=== PATIENT | female | born 1995 | race Caucasian/White ===

== ENCOUNTER 2017-04-09 12:44 | Emergency (ER) | payer OTHER ==
[~2017-04-09 12:44] MED LIST: METF500T PO; PREVTAB PO
[2017-04-09 12:45] VITALS: BP 140/89; PULSE 93; RESP 16; TEMP 98.5; O2SAT 97
[2017-04-09 13:56] LABS: BLOOD, URINE NEG (NEG); GLUCOSE,URINE NEG (NEG); KETONE, URINE NEG (NEG); NITRITE,URINE NEG (NEG); PH, URINE 7.5 (5.0-8.5); SQUAMOUS EPITHELIAL CELL URINE 2 /hpf (0-5); URINE COLOR LIGHT-YELLOW (YELLW/STRAW)
[2017-04-09 13:57] LABS: AUTOMATED NEUTROPHIL # 6.8 TH/MM3 (1.8-7.7); BASOPHIL % 0.4 % (0.0-2.0); COMMENT (UR) CULT NOT INDICATED; CULTURE IF INDICATED CULT NOT INDICATED; EOSINOPHIL # 0.1 TH/MM3 (0-0.4); EOSINOPHIL % 0.8 % (0.0-4.0); HEMATOCRIT 40.2 % (35.0-46.0); HEMO FLAGS DIFF FINAL; LYMPHOCYTE # 2.2 TH/MM3 (1.0-4.8); MEAN CELL VOLUME 85.3 FL (80.0-100.0); MEAN CORPUSCULAR HEMOGLOBIN 28.7 PG (27.0-34.0); MEAN CORPUSCULAR HGB CONC 33.7 % (32.0-36.0); MONO % 5.2 % (0.0-8.0); NEUT % 70.6 % (16.0-70.0); PLATELET COUNT 334 TH/MM3 (150-450); RED BLOOD COUNT 4.71 MIL/MM3 (4.00-5.30); RED CELL DISTRIBUTION WIDTH 13.5 % (11.6-17.2); WHITE BLOOD COUNT 9.6 TH/MM3 (4.0-11.0)
[2017-04-09 14:02] LABS: APTT (PATIENT) 26.8 SEC (24.3-30.1); PROTHROMBIN TIME - PATIENT 10.6 SEC (9.8-11.6)
--- NOTE | 2017-04-09 14:07 | PD ---
HPI Chief Complaint: Related Problem Time Seen by Provider: 13:52 Travel History International Travel<30 days: No Contact w/Intl Traveler<30days: No Traveled to known affect area: No History of Present Illness HPI The patient is a 21-year-old female who presents to the emergency department for positive test. The patient is a whose last menstrual cycle was February 08, 2017. The patient was on oral contraceptive pills until she had a test one week ago which was positive. The patient saw her primary physician in the office today who performed a test which was positive. The patient was sent for an outpatient ultrasound at [facility], apparently had an ultrasound which did not reveal an IUP or an ectopic and was referred to the emergency department for further evaluation. She does complain of mild lower abdominal cramping and mild low back pain. She does note 2 intermittent episodes of light vaginal spotting. She states her blood type is Rh+, she knows her blood type secondary to donating blood. She denies any significant abdominal pain, nausea, vomiting , dysuria, or vaginal discharge. Symptoms are mild, possibly exacerbated by underlying , there are no current alleviating factors. PFSH Past Medical History Medical History: Denies Significant Hx Diminished Hearing: No Reproductive: Yes Immunizations Current: Yes Tetanus Vaccination: < 5 Years ?: LMP: 02/08/17 : 1 Para: 0 Past Surgical History Oral Surgery: Yes Other Surgery: Yes (WISDOM TEETH EXTRACTION) Social History Alcohol Use: No Tobacco Use: No Substance Use: No Allergies-Medications (Allergen,Severity, Reaction): Coded Allergies: amoxicillin (Unverified Allergy, Unknown, 04/09/17) clavulanic acid (Unverified Allergy, Unknown, 04/09/17) Reported Meds & Prescriptions Reported Meds & Active Scripts Active Metformin (Metformin HCl) 500 Mg Tab 500 Mg PO BIDPC With meals Review of Systems Except as stated in HPI: all other systems reviewed are Neg General / Constitutional: No: Fever Cardiovascular: No: Chest Pain or Discomfort Respiratory: No: Shortness of Breath Gastrointestinal: No: Nausea, Vomiting, Abdominal Pain Genitourinary: Positive: Pelvic Pain (cramping), Vaginal Bleeding (spotting), No: Dysuria, Discharge Physical Exam Narrative GENERAL: Awake, alert, pleasant 21-year-old female who appears her stated age and is in no acute respiratory distress. SKIN: Focused skin assessment warm/dry. HEAD: Atraumatic. Normocephalic. EYES: Pupils equal and round. No scleral icterus. No injection or drainage. ENT: No nasal bleeding or discharge. Mucous membranes pink and moist. NECK: Trachea midline. No JVD. CARDIOVASCULAR: Regular rate and rhythm. No murmur appreciated. RESPIRATORY: No accessory muscle use. Clear to auscultation. Breath sounds equal bilaterally. GASTROINTESTINAL: Abdomen soft, non-tender, nondistended. No rebound tenderness , guarding, or rigidity. Back: No CVA tenderness. Pelvic: The exam was performed in the presence of a female nurse. External examination reveals no rashes or lesions. Speculum examination reveals no blood in the vaginal vault. Cervix is closed, slightly discolored bluish, positive Jonathan sign, positive closed with small brown mucous plug noticeable. MUSCULOSKELETAL: No obvious deformities. No clubbing. No cyanosis. No edema. NEUROLOGICAL: Awake and alert. No obvious cranial nerve deficits. Motor grossly within normal limits. Normal speech. PSYCHIATRIC: Appropriate mood and affect; insight and judgment normal. Data Data Last Documented VS Vital Signs Date Time Temp Pulse Resp B/P (MAP) Pulse Ox O2 Delivery O2 Flow Rate FiO2 04/09/17 12:45 98.5 93 16 140/89 (106) 97 Orders Orders Beta Hcg (Quant/Titer) (04/09/17 13:04) Urinalysis - C+S If Indicated (04/09/17 13:04) Ed Urine Pregnancytest Poc (04/09/17 13:04) Complete Rh (04/09/17 13:04) Complete Blood Count With Diff (04/09/17 13:04) Basic Metabolic Panel (Bmp) (04/09/17 13:04) Coag Profile (04/09/17 13:04) Labs Laboratory Tests Test 04/09/17 13:35 White Blood Count 9.6 TH/MM3 Red Blood Count 4.71 MIL/MM3 Hemoglobin 13.5 GM/DL Hematocrit 40.2 % Mean Corpuscular Volume 85.3 FL Mean Corpuscular Hemoglobin 28.7 PG Mean Corpuscular Hemoglobin Concent 33.7 % Red Cell Distribution Width 13.5 % Platelet Count 334 TH/MM3 Mean Platelet Volume 7.0 FL Neutrophils (%) (Auto) 70.6 % Lymphocytes (%) (Auto) 23.0 % Monocytes (%) (Auto) 5.2 % Eosinophils (%) (Auto) 0.8 % Basophils (%) (Auto) 0.4 % Neutrophils # (Auto) 6.8 TH/MM3 Lymphocytes # (Auto) 2.2 TH/MM3 Monocytes # (Auto) 0.5 TH/MM3 Eosinophils # (Auto) 0.1 TH/MM3 Basophils # (Auto) 0.0 TH/MM3 CBC Comment DIFF FINAL Differential Comment Prothrombin Time 10.6 SEC Prothromb Time International Ratio 1.0 RATIO Activated Partial Thromboplast Time 26.8 SEC Urine Color LIGHT-YELLOW Urine Turbidity CLEAR Urine pH 7.5 Urine Specific [place] 1.014 Urine Protein NEG mg/dL Urine Glucose (UA) NEG mg/dL Urine Ketones NEG mg/dL Urine Occult Blood NEG Urine Nitrite NEG Urine Bilirubin NEG Urine Urobilinogen LESS THAN 2.0 MG/DL Urine Leukocyte Esterase NEG Urine RBC LESS THAN 1 /hpf Urine WBC LESS THAN 1 /hpf Urine Squamous Epithelial Cells 2 /hpf Microscopic Urinalysis Comment CULT NOT INDICATED Blood Urea Nitrogen 11 MG/DL Creatinine 0.61 MG/DL Random Glucose 98 MG/DL Calcium Level 8.8 MG/DL Sodium Level 138 MEQ/L Potassium Level 3.6 MEQ/L Chloride Level 105 MEQ/L Carbon Dioxide Level 26.7 MEQ/L Anion Gap 6 MEQ/L Estimat Glomerular Filtration Rate 122 ML/MIN Human Chorionic Gonadotropin, Quant 322 MIU/ML [facility] Medical Decision Making Medical Screen Exam Complete: Yes Emergency Medical Condition: Yes Medical Record Reviewed: Yes Interpretation(s) Ultrasound pelvis transabdominal and transvaginal performed at [facility] earlier today: Impression reveals left ovary is probably normal. Right ovary is not well visualized due to bowel gas. No intrauterine gestational sac identified. Patient has a slightly thickened endometrium. Since there is no intrauterine gestation sac identified an ectopic cannot be excluded. Recommend follow-up with quantitative BHCG levels. Laboratory Tests Test 04/09/17 13:35 White Blood Count 9.6 TH/MM3 Red Blood Count 4.71 MIL/MM3 Hemoglobin 13.5 GM/DL Hematocrit 40.2 % Mean Corpuscular Volume 85.3 FL Mean Corpuscular Hemoglobin 28.7 PG Mean Corpuscular Hemoglobin Concent 33.7 % Red Cell Distribution Width 13.5 % Platelet Count 334 TH/MM3 Mean Platelet Volume 7.0 FL Neutrophils (%) (Auto) 70.6 % Lymphocytes (%) (Auto) 23.0 % Monocytes (%) (Auto) 5.2 % Eosinophils (%) (Auto) 0.8 % Basophils (%) (Auto) 0.4 % Neutrophils # (Auto) 6.8 TH/MM3 Lymphocytes # (Auto) 2.2 TH/MM3 Monocytes # (Auto) 0.5 TH/MM3 Eosinophils # (Auto) 0.1 TH/MM3 Basophils # (Auto) 0.0 TH/MM3 CBC Comment DIFF FINAL Differential Comment Prothrombin Time 10.6 SEC Prothromb Time International Ratio 1.0 RATIO Activated Partial Thromboplast Time 26.8 SEC Urine Color LIGHT-YELLOW Urine Turbidity CLEAR Urine pH 7.5 Urine Specific [place] 1.014 Urine Protein NEG mg/dL Urine Glucose (UA) NEG mg/dL Urine Ketones NEG mg/dL Urine Occult Blood NEG Urine Nitrite NEG Urine Bilirubin NEG Urine Urobilinogen LESS THAN 2.0 MG/DL Urine Leukocyte Esterase NEG Urine RBC LESS THAN 1 /hpf Urine WBC LESS THAN 1 /hpf Urine Squamous Epithelial Cells 2 /hpf Microscopic Urinalysis Comment CULT NOT INDICATED Blood Urea Nitrogen 11 MG/DL Creatinine 0.61 MG/DL Random Glucose 98 MG/DL Calcium Level 8.8 MG/DL Sodium Level 138 MEQ/L Potassium Level 3.6 MEQ/L Chloride Level 105 MEQ/L Carbon Dioxide Level 26.7 MEQ/L Anion Gap 6 MEQ/L Estimat Glomerular Filtration Rate 122 ML/MIN Human Chorionic Gonadotropin, Quant 322 MIU/ML Differential Diagnosis Differential diagnosis includes , ectopic , threatened AB, complete AB, incomplete AB, UTI. Narrative Course IV was established, labs are drawn and sent, the patient was placed on cardiac telemetry monitoring and continuous pulse oximetry monitoring. The patient states she is Rh+, however, there is no blood bank noted. Therefore, Rh status was sent to lab. Quantitative beta hCG was sent to lab. I obtained the patient 's ultrasound results from her ultrasound earlier today that was transabdominal and transvaginal, there is no free fluid in the cul-de-sac. No intrauterine gestation sac was identified, the patient did have a slightly thickened endometrium. They recommended follow-up with quantitative hCG levels. Beta hCG was 322, most likely too early to evaluate for possible ectopic/IUP. Patient will need repeat beta hCG in 48-72 hours. Patient's blood type is B+, therefore, no indication for RhoGAM. Diagnosis Primary Impression: Qualified Codes: Z34.90 - Encounter for supervision of normal , unspecified, unspecified trimester Patient Instructions: General Instructions Additional Instructions: Take a vitamin daily. Repeat beta hCG in 48-72 hours. Please provide the patient a copy of her labs at discharge. Return if symptoms worsen or progress. Med/Other Pt SpecificInfo: Other (take a vitamin daily) Disposition: 01 DISCHARGE HOME Condition: Stable Oliver Mg MD Apr 09, 2017 14:07
[2017-04-09 14:23] LABS: BICARBONATE 26.7 MEQ/L (21.0-32.0); POTASSIUM 3.6 MEQ/L (3.5-5.1)
== END 2017-04-09 16:00 | disposition home or self-care (01) ==
LOC: NEPD 12:44
DX: Z34.90 Encounter for supervision of normal pregnancy, unspecified, unspecified trimester (principal)
CPT/HCPCS: 80048; 81001; 84702; 85025; 85610; 85730; 86901; 99283